=== PATIENT | female | born 1945 | race Caucasian/White ===

== ENCOUNTER 2017-09-18 09:24 | Emergency (ER) | payer MEDICARE ==
[2017-09-18] MEDS ORDERED: NS(*) 0.9% 1000 ML BAG 1,000 ML IV ONE (09:41)
[2017-09-18] MEDS ORDERED: ONDANSETRON 4 MG/2 ML VIAL IVP ONE (09:45)
--- NOTE | 2017-09-18 09:55 | ER Report ---
History and Physical Time Seen By MD: 09:41 Hx. of Stated Complaint: PATIENT REPORTS ABDOMINAL PAIN FOR THE LAST YEAR AND A HALF. PATIENT REPORTS VOMTING THIS MORNING AND WORSENING PAIN. HPI/ROS CHIEF COMPLAINT: Abdominal jesús HISTORY OF PRESENT ILLNESS: Patient is a 71-year-old female comes in with right upper quadrant pain she's had this intermittently for several years the last 2 days been getting significantly worse patient states that is localized right upper quadrant some radiation in through the back happens postprandial mostly after eating fatty foods nausea without vomiting no diarrhea no additional complaints noted. Sharp stabbing localized REVIEW OF SYSTEMS: Respiratory: No cough, no dyspnea. Cardiovascular: No chest pain, no palpitations. Gastrointestinal: No vomiting with upper quadrant abdominal pain Musculoskeletal: No back pain. Remainder of the 14 system rev: Yes Allergies: Coded Allergies: Penicillins (Verified Allergy, Intermediate, 09/18/17) Sulfa (Sulfonamide Antibiotics) (Verified Allergy, Intermediate, 09/18/17) Home Meds Reported Medications Gabapentin (GABAPENTIN) 300 Mg Capsule, 600 MG PO QHS, CAPSULE 09/18/17 Citalopram Hydrobromide (CITALOPRAM HBR) 20 Mg Tablet, 40 MG PO QDAY, #5 TAB 09/18/17 Oxybutynin Chloride (OXYBUTYNIN CHLORIDE) 5 Mg Tablet, 5 MG PO BID, TAB 09/18/17 Venlafaxine Hcl (VENLAFAXINE HCL ER) 75 Mg Tab.er.24, 75 MG PO QDAY 09/18/17 Levothyroxine Sodium (LEVOTHYROXINE SODIUM) 50 Mcg Tablet, 50 MCG PO QDAY, TAB 09/18/17 Reviewed Nurses Notes: Yes Old Medical Records Reviewed: Yes Hx Substance Use Disorder: No Hx Alcohol Use: No Constitutional Vital Sign - Last 24 Hours 09/18/17 09/18/17 09/18/17 09/18/17 09:27 09:30 09:54 10:34 Temp 98.7 Pulse 77 76 Resp 20 B/P (MAP) 129/93 129/93 (105) 132/72 (92) Pulse Ox 93 94 O2 Delivery Room Air 09/18/17 09/18/17 10:39 11:21 Pulse 81 B/P (MAP) 120/73 (89) Pulse Ox 93 Intake and Output 09/18/17 09/18/17 09/19/17 15:00 23:00 07:00 Intake Total 1000 ml Balance 1000 ml Physical Exam General Appearance: The patient is alert, has no immediate need for airway protection and no current signs of toxicity. [ ] Eyes: Pupils equal and round no injection. Respiratory: Chest is non tender, lungs are clear to auscultation. Cardiac: regular rate and rhythm [ ] Gastrointestinal: Abdomen is tender to palpation of the right upper quadrant Musculoskeletal: Neck: Neck is supple and non tender. Extremities have full range of motion and are non tender. Skin: No rashes or lesions. [ ] DIFFERENTIAL DIAGNOSIS: After history and physical exam differential diagnosis was considered for gallbladder disease gallstone pancreatitis colitis enteritis pancreatitis Medical Decision Making Data Points Result Diagram: 09/18/17 0947 09/18/17 0947 Laboratory Hematology Test 09/18/17 09:27 09/18/17 09:47 Urine Color Yellow Urine Clarity Clear Urine pH 6.0 pH (4.8-9.5) Urine Specific [place] 1.015 Urine Protein Negative mg/dL (NEGATIVE) Urine Glucose (UA) Negative mg/dL (NEGATIVE) Urine Ketones Negative mg/dL (NEGATIVE) Urine Blood Negative (NEGATIVE) Urine Nitrite Negative (NEGATIVE) Urine Bilirubin Negative (NEGATIVE) Urine Urobilinogen Negative mg/dL (0.2-1.9) Urine Leukocyte Esterase Negative (NEGATIVE) Urine RBC <1 /HPF (0-2/HPF) Urine WBC 1 /HPF (0-5/HPF) Urine Squamous Epithelial Cells Many /LPF (</=FEW) Urine Bacteria Few /HPF (NONE-FEW) Urine Mucus Few /HPF (NONE-FEW) Red Blood Count 4.59 M/uL (4.17-5.56) Mean Corpuscular Volume 88.9 fL (80.0-96.0) Mean Corpuscular Hemoglobin 31.3 pg (26.0-33.0) Mean Corpuscular Hemoglobin Concent 35.2 g/dL (32.0-36.0) Red Cell Distribution Width 13.4 % (11.5-14.5) Mean Platelet Volume 7.6 fL (7.2-11.1) Neutrophils (%) (Auto) 63.8 % (39.4-72.5) Lymphocytes (%) (Auto) 21.4 % (17.6-49.6) Monocytes (%) (Auto) 8.1 % (4.1-12.4) Eosinophils (%) (Auto) 5.3 % (0.4-6.7) Basophils (%) (Auto) 1.4 % (0.3-1.4) Nucleated RBC Relative Count (auto) 0.0 /100WBC Neutrophils # (Auto) 5.4 K/uL (2.0-7.4) Lymphocytes # (Auto) 1.8 K/uL (1.3-3.6) Monocytes # (Auto) 0.7 K/uL (0.3-1.0) Eosinophils # (Auto) 0.4 K/uL (0.0-0.5) Basophils # (Auto) 0.1 K/uL (0.0-0.1) Nucleated RBC Absolute Count (auto) 0.00 K/uL Prothrombin Time 13.2 seconds (12.0-14.4) Prothromb Time International Ratio 1.00 Activated Partial Thromboplast Time 30 seconds (23-35) Sodium Level 141 mmol/L (137-145) Potassium Level 4.2 mmol/L (3.5-5.0) Chloride Level 105 mmol/L (98-107) Carbon Dioxide Level 23 mmol/L (22-31) Blood Urea Nitrogen 17 mg/dl (7-18) Creatinine 0.90 mg/dl (0.52-1.04) Glomerular Filtration Rate Calc > 60.0 Random Glucose 101 mg/dl (75-110) Calcium Level 9.8 mg/dl (8.4-10.2) Total Bilirubin 0.5 mg/dl (0.2-1.3) Aspartate Amino Transf (AST/SGOT) 34 U/L (0-35) Alanine Aminotransferase (ALT/SGPT) 40 U/L (0-56) Alkaline Phosphatase 129 U/L (0-126) Total Protein 7.4 gm/dl (6.3-8.2) Albumin 4.2 g/dl (3.5-5.0) Lipase 87 U/L (23-300) Serum Alcohol < 10 mg/dl Chemistry Test 09/18/17 09:27 09/18/17 09:47 Urine Color Yellow Urine Clarity Clear Urine pH 6.0 pH (4.8-9.5) Urine Specific [place] 1.015 Urine Protein Negative mg/dL (NEGATIVE) Urine Glucose (UA) Negative mg/dL (NEGATIVE) Urine Ketones Negative mg/dL (NEGATIVE) Urine Blood Negative (NEGATIVE) Urine Nitrite Negative (NEGATIVE) Urine Bilirubin Negative (NEGATIVE) Urine Urobilinogen Negative mg/dL (0.2-1.9) Urine Leukocyte Esterase Negative (NEGATIVE) Urine RBC <1 /HPF (0-2/HPF) Urine WBC 1 /HPF (0-5/HPF) Urine Squamous Epithelial Cells Many /LPF (</=FEW) Urine Bacteria Few /HPF (NONE-FEW) Urine Mucus Few /HPF (NONE-FEW) White Blood Count 8.5 k/uL (4.5-11.0) Red Blood Count 4.59 M/uL (4.17-5.56) Hemoglobin 14.4 g/dL (12.0-16.0) Hematocrit 40.7 % (34.0-47.0) Mean Corpuscular Volume 88.9 fL (80.0-96.0) Mean Corpuscular Hemoglobin 31.3 pg (26.0-33.0) Mean Corpuscular Hemoglobin Concent 35.2 g/dL (32.0-36.0) Red Cell Distribution Width 13.4 % (11.5-14.5) Platelet Count 415 K/uL (150-450) Mean Platelet Volume 7.6 fL (7.2-11.1) Neutrophils (%) (Auto) 63.8 % (39.4-72.5) Lymphocytes (%) (Auto) 21.4 % (17.6-49.6) Monocytes (%) (Auto) 8.1 % (4.1-12.4) Eosinophils (%) (Auto) 5.3 % (0.4-6.7) Basophils (%) (Auto) 1.4 % (0.3-1.4) Nucleated RBC Relative Count (auto) 0.0 /100WBC Neutrophils # (Auto) 5.4 K/uL (2.0-7.4) Lymphocytes # (Auto) 1.8 K/uL (1.3-3.6) Monocytes # (Auto) 0.7 K/uL (0.3-1.0) Eosinophils # (Auto) 0.4 K/uL (0.0-0.5) Basophils # (Auto) 0.1 K/uL (0.0-0.1) Nucleated RBC Absolute Count (auto) 0.00 K/uL Prothrombin Time 13.2 seconds (12.0-14.4) Prothromb Time International Ratio 1.00 Activated Partial Thromboplast Time 30 seconds (23-35) Glomerular Filtration Rate Calc > 60.0 Calcium Level 9.8 mg/dl (8.4-10.2) Total Bilirubin 0.5 mg/dl (0.2-1.3) Aspartate Amino Transf (AST/SGOT) 34 U/L (0-35) Alanine Aminotransferase (ALT/SGPT) 40 U/L (0-56) Alkaline Phosphatase 129 U/L (0-126) Total Protein 7.4 gm/dl (6.3-8.2) Albumin 4.2 g/dl (3.5-5.0) Lipase 87 U/L (23-300) Serum Alcohol < 10 mg/dl Coagulation Test 09/18/17 09:47 Prothrombin Time 13.2 seconds Prothromb Time International Ratio 1.00 Activated Partial Thromboplast Time 30 seconds Toxicology Test 09/18/17 09:47 Serum Alcohol < 10 mg/dl Urinalysis Test 09/18/17 09:27 Urine Color Yellow Urine Clarity Clear Urine pH 6.0 pH (4.8-9.5) Urine Specific [place] 1.015 Urine Protein Negative mg/dL (NEGATIVE) Urine Glucose (UA) Negative mg/dL (NEGATIVE) Urine Ketones Negative mg/dL (NEGATIVE) Urine Blood Negative (NEGATIVE) Urine Nitrite Negative (NEGATIVE) Urine Bilirubin Negative (NEGATIVE) Urine Urobilinogen Negative mg/dL (0.2-1.9) Urine Leukocyte Esterase Negative (NEGATIVE) Urine RBC <1 /HPF (0-2/HPF) Urine WBC 1 /HPF (0-5/HPF) Urine Squamous Epithelial Cells Many /LPF (</=FEW) Urine Bacteria Few /HPF (NONE-FEW) Urine Mucus Few /HPF (NONE-FEW) ED Course/Re-evaluation ED Course ED clinical course 71-year-old female comes with right upper quadrant pain ultrasound shows an intragallbladder polyp but no obvious signs of cholelithiasis or currently cholangitis is or choledocholithiasis follow-up CT shows constipation but no obvious intra-abdominal pathology some nodules in the lower lung renteria which needs follow-up diagnosis have be constipation and will refer her to primary care Decision to Disposition Date: Sep 18, 2017 Decision to Disposition Time: 11:52 Depart Departure Latest Vital Signs Vital Signs Date Time Temp Pulse Resp B/P (MAP) Pulse Ox O2 Delivery O2 Flow Rate FiO2 09/18/17 11:21 120/73 (89) 09/18/17 10:39 81 93 09/18/17 09:27 98.7 20 Room Air Impression: Primary Impression: Constipation Condition: Improved Disposition: HOME OR SELF-CARE Referrals: RAGHAV GILLILAND (PCP) 5 Days New Scripts Bisacodyl (DULCOLAX) 5 Mg Tablet. 5 MG PO BID for 10 Days, #20 Prov: CHRIS MCKEON MD 09/18/17 Patient Instructions: Constipation (DC) CHRIS MCKEON MD Sep 18, 2017 09:55
[2017-09-18 09:59] LABS: PLATELET COUNT, AUTOMATED 415 K/uL (150-450)
--- NOTE | 2017-09-18 10:20 | RADIOLOGY IMAGING REPORT ---
FACILITY: [facility] - [place] PATIENT NAME: Montserrat Kelly : 1945 MR: [id number] V: [id number] EXAM DATE: ORDERING PHYSICIAN: CHRIS MCKEON TECHNOLOGIST: Location: [facility] - [place] Patient: Montserrat Kelly : 1945 Visit/Account:[id number] Date of Sevice: 09/18/2017 CHEST PA AND LAT COMPARISONS: None. ADDITIONAL PERTINENT HISTORY: Cough and pain FINDINGS: Cardiomediastinal silhouette: Negative. Pulmonary vasculature: Negative. Lung renteria: Negative. Pleural spaces: Negative. Osseous structures: Patient status post previous anterior interbody fusion of the lower cervical spi ne. Remote appearing minimally displaced fractures of the posterior lateral sixth and seventh ribs. Surrounding soft tissues: Negative. IMPRESSION: No evidence of acute cardiopulmonary disease. Report Dictated By: Sreekanth Silva MD at 09/18/2017 10:15 AM Report E-Signed By: Sreekanth Silva MD at 09/18/2017 10:16 AM WSN:[id number]
[2017-09-18] MEDS ORDERED: IOPAMIDOL 76% 75 ML INFUS BTL 75 ML ONE (10:51)
[2017-09-18] MEDS ORDERED: LEVO50TA86 PO (11:00)
[2017-09-18] MEDS ORDERED: GABA-549 PO (11:00)
[2017-09-18] MEDS ORDERED: CITA-139 PO (11:00)
[2017-09-18] MEDS ORDERED: OXYB5TAB86 PO (11:00)
[2017-09-18] MEDS ORDERED: VENL75TA98 PO (11:00)
--- NOTE | 2017-09-18 11:16 | RADIOLOGY IMAGING REPORT ---
FACILITY: [facility] - [place], [place] PATIENT NAME: Montserrat Kelly : 1945 MR: [id number] V: [id number] EXAM DATE: ORDERING PHYSICIAN: CHRIS MCKEON TECHNOLOGIST: Location: [facility] Patient: Montserrat Kelly : 1945 Visit/Account:[id number] Date of Sevice: 09/18/2017 EXAMINATION: Ultrasound abdomen right upper quadrant HISTORY: Right upper quadrant pain. COMPARISON: Right upper quadrant abdominal ultrasound from 11/07/2016. FINDINGS: Gallbladder: Gallbladder wall is mildly irregular with some areas of comet tail artifact. There is a 4 mm polyp along the posterior wall, which is new. No stones, wall thickening, pericholecystic fluid or sonographic Fink sign. Liver: Normal in size measuring 15.8 cm in length. Mildly heterogeneous and hyperechoic parenchyma wi thout focal lesion. Portal vein is patent with hepatopetal flow. Liver surface is smooth. Common bile duct: Normal in size measuring 4.5 mm at the tigre hepatis. Pancreas: Pancreatic head is normal in echogenicity. The pancreatic body and tail are obscured by bow el gas. Right kidney: Normal in size and echogenicity, measuring 9.7 cm in length. No hydronephrosis. Resis tive index is normal at 0.69. Upper abdominal aorta and IVC: Negative. Ascites: None. IMPRESSION: 1. No cholelithiasis or acute cholecystitis. 2. Findings suspicious for mild adenomyomatosis of the gallbladder with a new 4 mm gallbladder polyp. Follow-up abdominal ultrasound is recommended in one year. 3. Mild diffuse fatty infiltration of the liver versus underlying hepatocellular disease, unchanged. 4. Pancreatic body and tail are obscured by bowel gas. Report Dictated By: Christa Uribe MD at 09/18/2017 11:06 AM Report E-Signed By: Christa Uribe MD at 09/18/2017 11:11 AM WSN:[id number]
--- NOTE | 2017-09-18 11:46 | RADIOLOGY IMAGING REPORT ---
[facility] PATIENT NAME: Montserrat Kelly : 1945 MR: [id number] V: [id number] EXAM DATE: ORDERING PHYSICIAN: CHRIS MCKEON TECHNOLOGIST: Location: [facility] - [place] Patient: Montserrat Kelly : 1945 Visit/Account:[id number] Date of Sevice: 09/18/2017 ABDOMEN/PELVIS WITH CONTRAST HISTORY: ruq pain TECHNIQUE: Following administration of IV contrast contiguous axial images acquired through the abdom en/pelvis. Coronal and sagittal reformatting also performed. Dose Lowering Technique One of the following dose optimization techniques was utilized in the performance of this exam: Autom ated exposure control; adjustment of the mA and/or kV according to the patient's size; or use of an i terative reconstruction technique. Specific details can be referenced in the facility's radiology C T exam operational policy. CONTRAST: 75 mL Isovue-370 COMPARISON: Gallbladder ultrasound performed today FINDINGS: Visualized lung bases: There is a nodular area of consolidation in the left lower lobe measuring steffi roximately 1.6 x 1.5 x 2.8 cm. Abdomen additional vague nodule medial left lower lobe measuring 7 mm in diameter best seen on image 40 3 mm noncalcified subpleural nodule lateral aspect left lower lobe is best seen on image 83 of series 3. Additional 6 mm vague nodule medial aspect of the left lower lobe best seen on image 15. An additional cluster of ill-defined nodules in the anterior left lower lobe also noted the largest measuring approximately 7 mm best seen on image nine Hepatobiliary: Diffuse hepatic steatosis Spleen: Negative. Adrenals: Negative. Pancreas: Negative. Kidneys ureters or bladder: Negative. Genitalia: Hysterectomy GI: There is a moderate size hiatal hernia. The colon is very redundant. There is a large amount of stool seen throughout the colon Vessels/spaces/nodes: There is a 9 x 9 mm lymph node in the gastrohepatic ligament. Bones/soft tissues: There are multiple moderate spondylotic changes L5-S1. Additional findings: None pertinent. IMPRESSION: There are multiple ill-defined nodules left lower lobe as detailed above. These changes could repres ent an acute infectious/inflammatory process, chronic changes versus neoplastic process. Short-term interval follow-up recommended current Fleischner Society recommendations are as follows For multiple nodules measuring 6 to 8 mm in size in a low risk patient, CT follow-up is recommended in 3-6 months , then consider CT at 18-24 months. For a high risk patient, CT follow-up is recommended at 3-6 month s, then at 18-24 months. Diffuse hepatic steatosis Moderate size hiatal hernia The colon is very redundant with a very large amount of stool seen throughout the colon consistent wi th constipation 9 x 9 mm lymph node in the gastric hepatic ligament Report Dictated By: Isela Bruce MD at 09/18/2017 11:18 AM Report E-Signed By: Isela Bruce MD at 09/18/2017 11:40 AM LOURDESN:[email or web address]
[2017-09-18] MEDS ORDERED: BISA-229 PO (11:54)
[2017-09-18 11:58] VITALS: BP 98/72
== END 2017-09-18 12:22 | disposition home or self-care (01) ==
LOC: ER 09:38
DX: K59.00 Constipation, unspecified (principal)
CPT/HCPCS: 71046; 74177; 76705; 81001; 83690; 85025; 85610; 85730; 96361; 96374; 99284; G0480; J2405; J7030; Q9967; 80320; 82040; 82247; 82310; 82374; 82435; 82565; 82947; 84075; 84132; 84155; 84295; 84450; 84460; 84520

== ENCOUNTER → 2017-12-27 | Outpatient (CLI) | payer MEDICARE ==
[~2017-12-27] MED LIST: BISA-229 PO; CITA-145 PO; GABA-549 PO; LEVO50TA86 PO; OXYB5TAB86 PO; VENL75TA98 PO
--- NOTE | 2017-12-27 14:34 | EKG ---
FACILITY: [facility] PATIENT NAME: RODRÍGUEZ EASON : [id number] MR: [id number] V: [id number] EXAM DATE: ORDERING PHYSICIAN: RAGHAV GILLILAND TECHNOLOGIST: Test Reason : Blood Pressure : / mmHG Vent. Rate : 064 BPM Atrial Rate : 064 BPM P-R Int : 134 ms QRS Dur : 082 ms QT Int : 420 ms P-R-T Axes : 031 -12 007 degrees QTc Int : 433 ms Normal sinus rhythm Low voltage QRS Cannot rule out Inferior infarct , age undetermined Abnormal ECG When compared with ECG of 10-MAY-2014 08:47, Minimal criteria for Inferior infarct are now present Referred By: Confirmed By:
[2017-12-27 14:56] LABS: PLATELET COUNT, AUTOMATED 360 K/uL (150-450)
== END ==
LOC: RESP 14:12
PROVIDERS: ATTEND Nurse Practitioner Psychiatric/Mental Health
DX: E78.5 Hyperlipidemia, unspecified (principal); I10 Essential (primary) hypertension; R53.83 Other fatigue; G62.9 Polyneuropathy, unspecified; R00.2 Palpitations; E03.9 Hypothyroidism, unspecified; R94.31 Abnormal electrocardiogram [ECG] [EKG]
CPT/HCPCS: 36415; 82040; 82247; 82306; 82310; 82374; 82435; 82465; 82565; 82947; 83540; 83718; 84075; 84132; 84155; 84295; 84443; 84450; 84460; 84478; 84520; 85025; 93005

== ENCOUNTER → 2018-03-17 | Outpatient (CLI) | payer MEDICARE ==
[~2018-03-17] MED LIST changes: +BARIUM SULFATE 176 GM BTL PO ONE; +BARIUM SULFATE 340 GM POWD ONE; +GOLYTE PO; +RANI-366 PO
--- NOTE | 2018-03-17 17:22 | RADIOLOGY IMAGING REPORT ---
FACILITY: [facility] PATIENT NAME: Montserrat Kelly : 1945 MR: [id number] V: [id number] EXAM DATE: ORDERING PHYSICIAN: REKHA COFFMAN TECHNOLOGIST: Location: [facility] Patient: Montserrat Kelly : 1945 Visit/Account:[id number] Date of Sevice: 03/17/2018 Exam type: UPPER GI SERIES W/O AIR History: Dysphasia Comparison: None. Findings: A double contrast upper GI series was performed with thick and thin barium and air contrast. There i s an impression made along the posterior aspect of the cervical esophagus likely from the cricopharyn geus muscle. Tertiary waves of the esophagus were also noted. There is a moderate size hiatal herni a with a moderate narrowing noted at the lower esophageal sphincter. A 12 mm barium tablet did howev er pass freely into the stomach. No mucosal erosion was identified. A large amount of gastroesophag eal reflux was observed. No abnormality of the stomach or duodenal bulb are identified. The visuali zed portion the proximal small bowel appeared to be mildly dilated throughout its course however ther e was no obstruction to the flow barium and this may simply represent an anatomic variant. The fluor oscopy dose area product was 616.07 micro-Kelley per meter squared IMPRESSION: 1. There is a moderate size hiatal hernia with a large amount of gastroesophageal reflux. There is moderate narrowing at the lower esophageal sphincter although 12 mm barium tablet did pass freely int o the stomach. Numerous tertiary waves were also noted in the esophagus Stomach and duodenal bulb appeared unremarkable. The visualized portion the proximal small bowel appeared to be mildly dilated throughout its course h owever there was no obstruction to the flow barium and this may simply represent an anatomic variant Report Dictated By: Isela Bruce MD at 03/17/2018 5:14 PM Report E-Signed By: Isela Bruce MD at 03/17/2018 5:19 PM WSN:[email or web address]
== END ==
LOC: RAD 00:55
PROVIDERS: ATTEND Surgery
DX: K21.9 Gastro-esophageal reflux disease without esophagitis (principal); K44.9 Diaphragmatic hernia without obstruction or gangrene
CPT/HCPCS: 74240

== ENCOUNTER 2018-04-02 00:32 | Day surgery (SDC) | payer MEDICARE ==
[~2018-04-02] VITALS: Ht 154.9 cm; Wt 68.5 kg
[~2018-04-02 00:32] MED LIST changes: -BARIUM SULFATE 176 GM BTL PO ONE; -BARIUM SULFATE 340 GM POWD ONE
[2018-04-02 09:38] VITALS: BP 145/84
[2018-04-02] MEDS ORDERED: LIDOCAINE/SOD BICARB 8.4% SYR ID ONE (09:50)
[2018-04-02] MEDS ORDERED: NORMOSOL R SOLN(*) 1000 ML BAG 1,000 ML IV PRN (09:50)
[2018-04-02] MEDS ORDERED: KETAMINE HCL-NS 50 MG/5 ML SYR ONE (09:58)
[2018-04-02] MEDS ORDERED: PROPOFOL EMUL(*) 10MG/ML 20 ML 40 ML ONE (10:00)
[2018-04-02] MEDS ORDERED: LIDOCAINE MPF 1% 5 ML VIAL ONE (10:00)
[2018-04-02 10:50] VITALS: BP 117/69
[2018-04-02 11:00] VITALS: BP 124/72
--- NOTE | 2018-04-02 11:13 | Short(Outpt) Discharge Summary ---
Discharge Summary Reason for Hosp/Final Diag: (1) Family history of colon cancer in mother Hospital Course & Plan: EGD with dilation of esophagus and colonoscopy completed without problems. (2) Dysphagia Status: Chronic Departure Discharge to: Home, Self Care Discharge Instructions Home Meds Active Scripts Ranitidine Hcl (ZANTAC) 150 Mg Tablet, 150 MG PO BID, #60 TAB 3 Refills Prov:REKHA COFFMAN MD 03/07/18 Peg/Electrolytes (GOLYTELY SOLUTION) 4,000 Ml Soln, 1 GAL PO ONCE, #1 GAL 0 Refills Prov:REKHA COFFMAN MD 03/04/18 Reported Medications Gabapentin (GABAPENTIN) 300 Mg Capsule, 600 MG PO QHS, CAPSULE 09/18/17 Citalopram Hydrobromide (CITALOPRAM HBR) 20 Mg Tablet, 40 MG PO QDAY, #5 TAB 09/18/17 Oxybutynin Chloride (OXYBUTYNIN CHLORIDE) 5 Mg Tablet, 5 MG PO BID, TAB 09/18/17 Venlafaxine Hcl (VENLAFAXINE HCL ER) 75 Mg Tab.er.24, 75 MG PO QDAY 09/18/17 Levothyroxine Sodium (LEVOTHYROXINE SODIUM) 50 Mcg Tablet, 50 MCG PO QDAY, TAB 09/18/17 Diet: Regular Activity: As Tolerated Special Instructions: Your upper endoscopy was completed without any problems and I dilated your throat and I didn't find any other abnormalities. Your colonoscopy was also completed without problems. I didn't find any inflammation, polyps, cancers or other abnormalities. Your prep wasn't excellent although it was pretty good. There were puddles of liquid stool with fecal sediment within them that obscured some parts of your colon. I was able to make it all the way around and I did get a look at most of your colon. I recommend that you undergo another colonoscopy in the next 5 years due to your family history. Problem Qualifiers (1) Dysphagia: Dysphagia type: oropharyngeal phase Qualified Codes: R13.12 - Dysphagia, oropharyngeal phase REKHA COFFMAN MD Apr 02, 2018 11:13
[2018-04-02 11:15] VITALS: BP 114/76
[2018-04-02 11:17] VITALS: BP 113/75
== END 2018-04-02 11:45 | disposition home or self-care (01) ==
LOC: OR 00:32
PROVIDERS: ATTEND Surgery
DX: Z12.11 Encounter for screening for malignant neoplasm of colon (principal); K44.9 Diaphragmatic hernia without obstruction or gangrene; R13.12 Dysphagia, oropharyngeal phase; K21.9 Gastro-esophageal reflux disease without esophagitis; K59.00 Constipation, unspecified; G47.33 Obstructive sleep apnea (adult) (pediatric); M79.7 Fibromyalgia; Z80.0 Family history of malignant neoplasm of digestive organs
CPT/HCPCS: 00812; 43235; C1769; G0121; J2001; J2704; J3490

== ENCOUNTER → 2019-01-05 | Outpatient (RCR) | payer MEDICARE ==
--- NOTE | 2018-10-08 18:06 | PT INITIAL EVALUATION ---
MEDICAL DIAGNOSIS: paresthesia of skin TREATMENT DIAGNOSIS: same, neck pain DATE OF ONSET: 10/07/14 SUBJECTIVE: Montserrat Kelly presents to physical therapy with complaints of neck pain, radiating pain down R UE (however, she has felt it go down the L UE as well), and numbness/tingling/pain into her R UE that started approximately 4 years ago. Furthermore, she reports that she had a cervical fusion that did not improve her radiating pain or improve her hand pain. She states that when the hand becomes numb it becomes extremely painful and rates it to be 8/10. She reports that working on the computer and driving makes her pain worse. She also reports that walking or standing feels good and does not make the pain worse. She reports that she feels like the muscles are extremely tight around the shoulder blade and was wondering/hoping the deep tissue work out make that pain feel better. Pain location is [id number], UT, Levator scapulae and described as achy. Pain scale is 8 on a ten point pain scale. REHAB PROBLEM LIST: Increased Pain Decreased ROM Decreased Strength Decreased Endurance Decreased Function Decreased ADL's PREVIOUS MEDICAL HISTORY: See EMR OCCUPATION: Retired in May 2018 OBJECTIVE: Posture: She demonstrates mild forward head, B rounded shoulders, increased thoracic kyphosis, and decreased lumbar lordosis. ROM: Cervical AROM: flexion: NIL with warm pain up into skull on L side. extension: minimal restriction with painful end feel. R sidebending: minimal restriction with pain down R arm into L hand. L sidebending: minimal restriction with pain into R shoulder blade and neck. R rotation: minimal restriction with pain into R back shoulder into neck behind the ear. L rotation: minimal restriction with pain into L neck behind ear and less in pain in shoulder but she feels it behind her eyes. RET: NIL with muscular end feel. Protrusion: NIL with muscular end feel. Palpation: TTP: [id number], UT, Levator scapulae Special Tests: Repeated RET: increased muscular end feel during and increased R hand numbness following, which is worse. Protrusion: increased muscular end feel during and increased headaches as a result, which is worse. Flexion: increased muscular stretch during and the R hand is worse following. Supine RET and supine RET with extension: increased pain during and worse headaches following. R sidebending: increased pain during and feels less pain in the hand and feels overall better. Mobility: Independent ASSESSMENT: Montserrat will benefit from skilled physical therapy to address the listed impairments to improve function and QOL. Based on the examination, her provisional classification is lateral derangement that responded to lateral motions. If she continues to demonstrate directional preference than she will have a good prognosis. However, if she does not demonstrate a directional preference than the prognosis will not be as favorable. Short Term Goals 2 weeks: Pt will demonstrate directional preference to increased prognosis to improve function and QOL. 4 weeks: If she demonstrates directional preference, she will demonstrate increased cervical AROM in all directions with decreased radiating pain and more centralized pain to improve function and QOL. 6 weeks: If she demonstrates directional preference, she will demonstrate increased cervical AROM in all directions, centralized neck pain, and progressing toward full recovery. Patient's Goals reduce pain PLAN: Patient to be seen for Manual Therapy/STM/MET Strengthening/condition Ice/Heat Range of Motion Spinal Stabilization Ultrasound Work Hardening/Cond Stretching Iontophoresis Neuromuscular Re-ed Closed Chain Program Electrical Stim Posture/Body mechanics Home Exercise Program Therapeutic Activities SHELLY Serna signature Date 2x/Week for 6 Weeks If you have any questions, comments, or concerns about this report or plan, please contact me at . Thank you, George Us, PT, DPT JUSTYNA
--- NOTE | 2018-11-25 09:27 | PT PLAN OF CARE ---
Physician: SHELLY Serna Patient is being seen:2x/week Therapist: George Us, PT, DPT Medical Diagnosis: paresthesia of skin Treatment Diagnosis: same, neck pain Date of Onset: 10/07/14 Date of Initial Evaluation: 10/07/18 Date patient was last seen: 11/24/18 Number of treatments: 10 Number of cancellations/No shows: 0 INTERVENTIONS: Manual Therapy/STM/MET Strengthening/condition Ice/Heat Range of Motion Spinal Stabilization Ultrasound Work Hardening/Cond Stretching Iontophoresis Neuromuscular Re-ed Closed Chain Program Electrical Stim Posture/Body mechanics Home Exercise Program Therapeutic Activities GOALS: 2 weeks: Pt will demonstrate directional preference to increased prognosis to improve function and QOL. MET 4 weeks: If she demonstrates directional preference, she will demonstrate increased cervical AROM in all directions with decreased radiating pain and more centralized pain to improve function and QOL. MET 6 weeks: If she demonstrates directional preference, she will demonstrate increased cervical AROM in all directions, centralized neck pain, and progressing toward full recovery. Progressing well and close to meeting PATIENT'S GOAL: reduce pain Status of Patient's Goals: Progressing well Patient Compliance: Good Prognosis: Fair Reasons for continuing therapy: This is a progress note for Montserrat Kelly. She reports that she is doing well. She denies any current cervical pain, numbness or tingling in her R UE, and lumbar pain or radiating pain down her R LE. She reports that she does feel some lumbar pain and leg pain with driving, but states that it has gotten better in the car. Otherwise, she reports that she no longer feels any low back pain or radiating pain with her daily life. She reports that the numbness and tingling in the R UE comes and goes (less often than it used to) but she states that if it comes on she can eliminate it with her current specific exercise, which she states that she could not do prior to PT. She has progressed well within PT demonstrating the following improvements: increased cervical AROM in all directions with normalized end feels in all directions, abolished cervical pain, abolished radiating pain, abolished lumbar pain, and abolished radiating pain. She is becoming independent with her home exercise program and is moving through the return to function portion well without any setbacks; therefore, more than likely we will discharge her next week. Posture: She demonstrates mild forward head, B rounded shoulders, increased thoracic kyphosis, and decreased lumbar lordosis. ROM: Cervical AROM: flexion: NIL with normalized end feel. extension: NIL with normalized end fee. R sidebending: NIL with normalized end fee. L sidebending: NIL with normalized end fee. R rotation: NIL with normalized end fee. L rotation: NIL with normalized end fee. RET: NIL with muscular end feel. Protrusion: NIL with muscular end feel. Palpation: TTP: No longer TTP Mobility: Independent Please sign Date: If you have any questions, please contact me at [phone]. Thank you, George Us, PT, DPT JUSTYNA
[~2019-01-05] MED LIST changes: -RANI-366 PO; +RANI-54 PO
== END ==
LOC: PT 10-07 08:33
PROVIDERS: ATTEND Nurse Practitioner Psychiatric/Mental Health
DX: M54.2 Cervicalgia (principal); R20.2 Paresthesia of skin; Z98.1 Arthrodesis status
CPT/HCPCS: 97163

== ENCOUNTER → 2019-01-13 | Outpatient (CLI) | payer MEDICARE ==
--- NOTE | 2019-01-13 10:08 | EKG ---
[place] [facility] [place] NAME: RODRÍGUEZ EASON : [id number] MR: [id number] V: [id number] EXAM DATE: ORDERING PHYSICIAN: REKHA NOLEN TECHNOLOGIST: HELLEN Test Reason : PRE OP Blood Pressure : / mmHG Vent. Rate : 057 BPM Atrial Rate : 057 BPM P-R Int : 132 ms QRS Dur : 074 ms QT Int : 442 ms P-R-T Axes : 035 003 007 degrees QTc Int : 430 ms Sinus bradycardia Low voltage QRS No ST-T abnormalities When compared with ECG of 27-DEC-2017 14:20, Minimal criteria for Inferior infarct are no longer present Confirmed by SHERRI ZAFAR ([id number]) on 01/13/2019 2:22:33 PM Referred By: TAMANNA Confirmed By:SHERRI ZAFAR
== END ==
LOC: RESP 09:45
PROVIDERS: ATTEND Anesthesiology
DX: Z01.810 Encounter for preprocedural cardiovascular examination (principal); S83.203A Other tear of unspecified meniscus, current injury, right knee, initial encounter; R00.1 Bradycardia, unspecified
CPT/HCPCS: 93005

== ENCOUNTER 2019-01-14 09:00 | Outpatient (RCR) | payer MEDICARE ==
--- NOTE | 2019-01-07 14:13 | PT PLAN OF CARE ---
Physician: SHELLY Serna Patient is being seen: 2x/week Therapist: George Us, PT, DPT Medical Diagnosis: paresthesia of skin Treatment Diagnosis: same, neck pain Date of Onset: 10/07/14 Date of Initial Evaluation: 10/07/18 Date patient was last seen: 01/07/19 Number of treatments: 17 Number of cancellations/No shows: 1 INTERVENTIONS: Manual Therapy/STM/MET Strengthening/condition Ice/Heat Range of Motion Spinal Stabilization Ultrasound Work Hardening/Cond Stretching Iontophoresis Neuromuscular Re-ed Closed Chain Program Electrical Stim Posture/Body mechanics Home Exercise Program Therapeutic Activities GOALS: 2 weeks: Pt will demonstrate directional preference to increased prognosis to improve function and QOL. MET 4 weeks: If she demonstrates directional preference, she will demonstrate increased cervical AROM in all directions with decreased radiating pain and more centralized pain to improve function and QOL. MET 6 weeks: If she demonstrates directional preference, she will demonstrate increased cervical AROM in all directions, centralized neck pain, and progressing toward full recovery. Progressing well and close to meeting PATIENT'S GOAL: reduce pain Status of Patient's Goals: Progressing well Patient Compliance: Good Prognosis: Fair Reasons for continuing therapy: This is a progress note for Montserrat Kelly. She reports that she is doing well. She reports that her knee was worse following the previous session and went to [facility] to have it looked out since it became worse following the last session. She reports that her neck, shoulder, and hand are doing well and denies any pain. She reports that her low back is doing well. She reports that she feels like her neck, shoulder, hand, and low back have returned to her prior level of function. However, she would like one more visit to address an excellent home exercise program to maintain her gains at home. 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 Furthermore, we would like to continue one more session to verify that she is independent with her home exercise program and then discharge to home exercise program. Posture: She demonstrates mild forward head, B rounded shoulders, increased thoracic kyphosis, and decreased lumbar lordosis. ROM: Cervical AROM: flexion: NIL with normalized end feel. extension: NIL with normalized end fee. R sidebending: NIL with normalized end fee. L sidebending: NIL with normalized end fee. R rotation: NIL with normalized end fee. L rotation: NIL with normalized end fee. RET: NIL with muscular end feel. Protrusion: NIL with muscular end feel. Palpation: TTP: No longer TTP Mobility: Independent Please sign Date: If you have any questions, please contact me at [phone]. Thank you, George Us, PT, DPT MTDD
--- NOTE | 2019-01-15 13:50 | PT PLAN OF CARE ---
Physician: SHELLY Serna Patient is being seen: 2x/week Therapist: George Us, PT, DPT Medical Diagnosis: paresthesia of skin Treatment Diagnosis: same, neck pain Date of Onset: 10/07/14 Date of Initial Evaluation: 10/07/18 Date patient was last seen: 01/14/19 Number of treatments: 18 Number of cancellations/No shows: 0 INTERVENTIONS: Manual Therapy/STM/MET Strengthening/condition Ice/Heat Range of Motion Spinal Stabilization Ultrasound Work Hardening/Cond Stretching Iontophoresis Neuromuscular Re-ed Closed Chain Program Electrical Stim Posture/Body mechanics Home Exercise Program Therapeutic Activities GOALS: 2 weeks: Pt will demonstrate directional preference to increased prognosis to improve function and QOL. MET 4 weeks: If she demonstrates directional preference, she will demonstrate increased cervical AROM in all directions with decreased radiating pain and more centralized pain to improve function and QOL. MET 6 weeks: If she demonstrates directional preference, she will demonstrate increased cervical AROM in all directions, centralized neck pain, and progressing toward full recovery. MET PATIENT'S GOAL: reduce pain Status of Patient's Goals: Progressing well Patient Compliance: Good Prognosis: Fair Reasons for continuing therapy: This is a discharge note for Montserrat Kelly. She reports that she is doing well with abolished neck, shoulder, arm, and hand pain. Furthermore, she reports that she will have a procedure on her knee next week to fix/clean up her meniscus. She demonstrates a return to prior level of function with her neck, shoulder, arm, and hand with abolished pain and abolished radiating pain with continual progression of strength in those regions as well. She is independent with her home exercise program. She has met all of her goals and will be discharged from PT as a result. Posture: She demonstrates mild forward head, B rounded shoulders, increased thoracic kyphosis, and decreased lumbar lordosis. ROM: Cervical AROM: flexion: NIL with normalized end feel. extension: NIL with normalized end fee. R sidebending: NIL with normalized end fee. L sidebending: NIL with normalized end fee. R rotation: NIL with normalized end fee. L rotation: NIL with normalized end fee. RET: NIL with muscular end feel. Protrusion: NIL with muscular end feel. Palpation: TTP: No longer TTP Mobility: Independent If you have any questions, please contact me at [phone]. Thank you, George Us, PT, DPT MTDD
== END 2019-01-14 18:00 | disposition home or self-care (01) ==
LOC: PT 09:00
PROVIDERS: ATTEND Nurse Practitioner Psychiatric/Mental Health
DX: M54.2 Cervicalgia (principal); R20.2 Paresthesia of skin; Z98.1 Arthrodesis status

== ENCOUNTER → 2019-01-22 | Outpatient (CLI) | payer MEDICARE ==
--- NOTE | 2019-01-22 11:29 | RADIOLOGY IMAGING REPORT ---
FACILITY: [facility] PATIENT NAME: Montserrat Kelly : 1945 MR: [id number] V: [id number] EXAM DATE: ORDERING PHYSICIAN: RAGHAV GILLILAND TECHNOLOGIST: Location: [facility] Patient: Montserrat Kelly : 1945 Visit/Account:[id number] Date of Sevice: 01/22/2019 DEXA Scan Clinical history: Ovarian failure. Comparison: DEXA scan from 01/11/2015. LUMBAR SPINE: The bone mineral density (BMD) measured from L1-L4 correlates with a Z-score of -0.8 and a T-score of -2.4 which is osteopenia as defined by the World Health Organization. The corresponding risk of fra cture in the lumbar spine is 4-6 times increased compared with a young adult reference population. T his value has decrease by 8.9 % since the prior study. More than 5% change is considered significant . HIP: Bone mineral density (BMD) measured in the LEFT total hip region correlates with a Z-score -0.8 and a T-score of -2.3 which is osteopenia as defined by the World Health Organization. The corresponding risk of fracture in the hip is 4-6 times increased compared to a young adult reference population. Th is value has decrease by 4.4 % since the prior study. More than 5% change is considered significant. T score left femoral neck -2.3 Bone mineral density (BMD) measured in the Femoral Neck region measures 0.717 g/cm?. IMPRESSION: 1. Lumbar spine: Osteopenia. There has been 8.9% decrease in the bone mineral density since the pre vious exam. 2. Left Total Hip: Osteopenia. There has been 4.4% decrease in the bone mineral density since the p revious exam. 3. Femoral Neck: Bone Mineral Density is 0.717 g/cm? The next DEXA scan of this patient should include the following sites: L1-L4 and the left hip. FRAX? WHO Fracture Risk Assessment Tool link: <http://www.shef.ac.uk/FRAX/tool.jsp?locationValue=9> PLEASE NOTE: 1) The World Health Organization defines low BMD as follows: T-score Normal > -1 Osteopenia < -1 and > -2.5 Osteoporosis < -2.5 without fractures Established osteoporosis < -2.5 with fractures 2) In general, you may wish to consider: Diagnosis Treatment Follow-up DEXA Normal BMD Prevention 2-3 years Osteopenia Prevention/therapy 1-2 years Osteoporosis Therapy Yearly 3) Fracture risk estimated from the T-score is more accurate for vertebral fractures (often spontane ous) than for hip fractures. Report Dictated By: Isela Bruce MD at 01/22/2019 11:19 AM Report E-Signed By: Isela Bruce MD at 01/22/2019 11:20 AM WSN:[email or web address]
--- NOTE | 2019-01-23 11:29 | RADIOLOGY IMAGING REPORT ---
FACILITY: [facility] PATIENT NAME: RODRÍGUEZ EASON : [id number] MR: [id number] V: [id number] EXAM DATE: ORDERING PHYSICIAN: RAGHAV GILLILAND TECHNOLOGIST: Katerin Velez PROCEDURE: BILATERAL DIGITAL SCREENING MAMMOGRAM WITH CAD ASSISTED INTERPRETATION & 3D TOMOSYNTHESIS REASON FOR STUDY: Screening. FAMILY HISTORY OF BREAST CANCER: Paternal uncle. FAMILY HISTORY OF OVARIAN CANCER: Paternal grandmother. BREAST PROCEDURES/TREATMENTS: Benign surgical biopsy of the Left breast. COMPARISON: 04/01/17, 01/31/17, 01/18/16, 01/11/15, 02/23/14, 11/09/13. VIEWS OBTAINED: Bilateral 2D & 3D full field CC & MLO projections. BREAST DENSITY: The breasts are heterogeneously dense which can obscure small masses. MAMMOGRAM FINDINGS: There is a circumscribed lobular density in the inferior lateral Right breast that has remained stable. The parenchymal pattern has remained stable throughout the breast. Surgical clip is identified in the 6 o'clock position of the Left breast. IMPRESSION: BIRADS 2: Benign finding. DIAGNOSTIC CATEGORY 2--BENIGN FINDING. RECOMMENDATIONS: ROUTINE MAMMOGRAM AND CLINICAL EVALUATION. Dictated by: Isela Bruce M.D. on 01/22/2019 at 11:07 Transcribed by: INA on 01/23/2019 at 11:07 Approved by: Isela Bruce M.D. on 01/23/2019 at 11:24 [facility]
== END ==
LOC: MAMO 02:00
PROVIDERS: ATTEND Nurse Practitioner Psychiatric/Mental Health
DX: Z12.31 Encounter for screening mammogram for malignant neoplasm of breast (principal); M85.89 Other specified disorders of bone density and structure, multiple sites
CPT/HCPCS: 77063; 77067; 77080